=== PATIENT | female | born 1995 | race Caucasian/White ===

== ENCOUNTER 2019-02-27 18:53 | Observation (INO) | payer BC ==
[2019-02-27 20:23] LABS: BUN/Creatinine Ratio 10.1 (8-20); Calcium 9.2 mg/dL (8.6-10.3); EGFR African American 107.3 (>60); EGFR Non-African American 88.7 (>60); Potassium 3.7 mmol/L (3.5-5.0)
[2019-02-28] MEDS ORDERED: NS 0.9% 1000 ML** 2,000 ML IV ONE (01:33)
[2019-02-28] MEDS ORDERED: Ketorolac INJ* 30 MG/ML 1 ML VIAL IV PUSH ONE (01:33)
[2019-02-28 01:50] LABS: ABS Basophils 0.1 10^3/ul (0-0.2); ABS Eosinophils 0.1 10^3/ul (0-0.6); ABS Lymphocytes 2.9 10^3/ul (1.0-4.8); ABS Monocytes 0.5 10^3/ul (0-0.8); ABS Neutrophils 5.1 10^3/ul (1.5-7.7); Eosinophil % 1.4 %; Hematocrit 40 % (35-47); Hemoglobin 13.6 g/dL (12.0-16.0); Lymphocyte % 33.5 %; Mean Corpuscular HGB Conc 34 g/dL (31-36); Mean Corpuscular Hemoglobin 31 pg (27-31); Mean Corpuscular Volume 91 fL (80-97); Mean Platelet Volume 9.4 fL (7.4-10.4); Platelet Count 272 10^3/uL (150-450); Red Blood Count 4.41 10^6 /uL (3.70-4.87); Red Cell Distribution Width 14 % (10-15); White Blood Count 8.6 10^3/uL (3.5-10.8)
--- NOTE | 2019-02-28 02:04 | HP ---
History of Present Illness - History of Present Illness Reason for Visit: Swollen arms bilaterally. History of Present Illness: 23yoF with PMHx of asthma and allergies here due to bilateral arms welling and pain. Patient had recently worked out a lot for the last 3 days. Having really bad pain in the arms so decided to come to the ER. Noticed a decline in urination, no pain with urination and noticed the urine was a bit darker in color. Has some lack of appetite. Past Medical History Mild Asthma only on PRN inhaler Allergies to a lot of foods Past Surgical History None Family History Mom 68 alive and well no medical problem. Dad 65 alive and well no medical problem. Social History No smoking, Some alcohol on occasions and no drugs although tried marijuana. Allergies Allergy/AdvReac Type Severity Reaction Status Date / Time Penicillins Allergy Anaphylatic Verified 02/27/19 19:03 Shock Home Medications Medication Instructions Recorded Confirmed Type Albuterol HFA INHALER* [Ventolin 2 puff INH Q6H PRN 02/28/19 02/28/19 History HFA Inhaler*] [id number] Tablet 1 tab PO DAILY WITH MEAL 02/28/19 02/28/19 History Review of Systems - Measurements Intake and Output: Intake and Output Last 24 Hours 02/25/19 02/26/19 02/27/19 02/28/19 06:59 06:59 06:59 06:59 Weight 151 lb - Review of Systems Constitutional Symptoms: Negative: Fever Eyes: Negative: Change in Vision Pulmonary: Negative: Cough, Shortness of Breath Cardiology: Negative: Chest Pain, Shortness of Breath, Palpitations Gastroenterology: Negative: Abdominal Pain, Nausea, Vomiting Musculoskeletal: Positive: Other - Bialteral Arm pain. Neurology: Negative: Change in Vision, Change in Balancing, Change in Coordination, Change in Memory Psychiatry: Negative: Depression, Anxiety Allergic/Immunologic: Positive: Hx Environmental, Asthma Objective Active Medications: Sodium Chloride (Ns 0.9% 1000 Ml) 2,000 mls @ 1,000 mls/hr IV .PER RATE ONE Stop: 02/28/19 03:32 Last Admin: 02/28/19 01:47 Dose: 1,000 mls/hr Vital Signs - 8 hr 02/27/19 02/27/19 02/27/19 18:58 21:20 23:27 Temperature 98.9 F 98.6 F 99.8 F Pulse Rate 66 63 60 Respiratory 16 18 18 Rate Blood Pressure 109/81 140/79 126/74 (mmHg) O2 Sat by Pulse 100 99 99 Oximetry Oxygen Devices in Use Now: None Eyes: No Scleral Icterus, PERRLA Ears/Nose/Mouth/Throat: NL Teeth, Lips, Gums, Clear Oropharnyx, Mucous Membranes Moist Neck: NL Appearance and Movements; NL JVP Respiratory: Clear to Auscultation Cardiovascular: NL Sounds; No Murmurs; No JVD, RRR, No Edema Abdominal: NL Sounds; No Tenderness; No Distention Extremities: No Edema, - - Bilateral arm tenderness. Neurological: Alert and Oriented x 3, NL Sensation, NL Gait, NL Muscle Strength and Tone Nutrition: Taking PO's Result Diagrams: 02/27/19 19:53 02/27/19 19:53 Assess/Plan/Problems-Billing Assessment: 23yoF with asthma here due to rhabdomyalsis with elevated CPK. - Patient Problems (1) Rhabdomyolysis Current Visit: Yes Status: Acute Code(s): M62.82 - RHABDOMYOLYSIS SNOMED Code(s): 839567026 Comment: Secondary to excessive workout. Start IV hydration. UA still pending. Montior Creatinine, urine output and CPK.
[2019-02-28] MEDS ORDERED: Acetaminophen TAB* 325 MG PO PRN (02:13)
[2019-02-28 02:21] LABS: Albumin 4.1 g/dL (3.2-5.2); Indirect Bilirubin 0.5 mg/dL (0.3-1.0); Total Bilirubin 0.7 mg/dL (0.2-1.0)
[2019-02-28 02:26] LABS: Albumin/Globulin Ratio 1.4 (1-3); C Reactive Protein 15.79 mg/L (<8.01); Globulin 2.9 g/dL (2-4)
[2019-02-28 02:55] LABS: Myoglobin 2031.1 ng/mL (14.3-65.8)
[2019-02-28] MEDS: NS 0.9% 1000 ML** 1,000 ML IV SCH ×4 (04:00→19:30)
--- NOTE | 2019-02-28 05:24 | ED ---
Upper Extremity Pain - HPI Summary HPI Summary: Patient is a 23 y/o F presenting to ED with complaints of bilateral arm pain and swelling for the past few days. She reports that she recently began to lift more frequently. PMHx is denied. Patient went to [facility] for evaluation earlier today. UA was done and patient was noted to have protein in urine. Patient was advised to come to [facility] for bloodwork. No rash noted. On triage, pain is rated 4/10, nothing is noted to aggravate/alleviate Sx. Home medications and allergies are reviewed. - History of Current Complaint Chief Complaint: EDExtremityUpper Stated Complaint: SWOLLEN MUSCLES, SENT FROM [facility] PER PT Time Seen by Provider: 02/28/19 01:24 Hx Obtained From: Patient Onset/Duration: Started Days Ago, Still Present Timing: Constant, Lasting Days Severity Initially: Moderate Pain Location: Arm - arms bilaterally Aggravating Factor(s): Nothing Alleviating Factor(s): Nothing Associated Signs & Symptoms: Positive: Swelling, Other - no rash - Allergies/Home Medications Allergies/Adverse Reactions: Allergies Allergy/AdvReac Type Severity Reaction Status Date / Time Penicillins Allergy Anaphylatic Verified 02/27/19 19:03 Shock Home Medications: Home Medications Albuterol HFA INHALER* [Ventolin HFA Inhaler*] 2 puff INH Q6H PRN 02/28/19 [ History Confirmed 02/28/19] [id number] Tablet 1 tab PO DAILY WITH MEAL 02/28/19 [History Confirmed ] PMH/Surg Hx/FS Hx/Imm Hx Sensory History: Reports: Hx Contacts or Glasses Denies: Hx Hearing Aid Opthamlomology History: Reports: Hx Contacts or Glasses Psychiatric History: Denies: Hx Anxiety, Hx Depression - Immunization History Immunizations Up to Date: Yes Infectious Disease History: No Infectious Disease History: Denies: Traveled Outside the [place] in Last 30 Days - Family History Known Family History: Negative: Diabetes - Social History Alcohol Use: Occasionally Substance Use Type: Reports: None Smoking Status (MU): Never Smoked Tobacco Review of Systems Positive: Myalgia - arms , Edema - arms Negative: Rash All Other Systems Reviewed And Are Negative: Yes Physical Exam - Summary Physical Exam Summary: VITAL SIGNS: Reviewed. GENERAL: Patient is a well-developed and nourished female who is lying comfortable in the stretcher. Patient is not in any acute respiratory distress. HEAD AND FACE: No signs of trauma. No ecchymosis, hematomas or skull depressions. No sinus tenderness. EYES: PERRLA, EOMI x 2, No injected conjunctiva, no nystagmus. EARS: Hearing grossly intact. Ear canals and tympanic membranes are within normal limits. MOUTH: Oropharynx within normal limits. NECK: Supple, trachea is midline, no adenopathy, no JVD, no carotid bruit, no c- spine tenderness, neck with full ROM CHEST: Symmetric, no tenderness at palpation LUNGS: Clear to auscultation bilaterally. No wheezing or crackles. CVS: Regular rate and rhythm, S1 and S2 present, no murmurs or gallops appreciated. Good pulses throughout. ABDOMEN: Soft, non-tender. No signs of distention. No rebound no guarding, and no masses palpated. Bowel sounds are normal. EXTREMITIES: FROM in all major joints, no cyanosis or clubbing. There is tenderness over both arms and no significant swelling. NEURO: Alert and oriented x 3. No acute neurological deficits. Speech is normal and follows commands. SKIN: Dry and warm Triage Information Reviewed: Yes Vital Signs On Initial Exam: Initial Vitals Temp Pulse Resp BP Pulse Ox 98.9 F 66 16 109/81 100 02/27/19 18:58 02/27/19 18:58 02/27/19 18:58 02/27/19 18:58 02/27/19 18:58 Vital Signs Reviewed: Yes Diagnostics - Vital Signs Vital Signs Temp Pulse Resp BP Pulse Ox 02/28/19 02:10 74 124/77 100 02/28/19 02:01 62 97 02/28/19 01:42 76 100 02/28/19 01:40 78 124/70 99 02/27/19 23:27 99.8 F 60 18 126/74 99 02/27/19 21:20 98.6 F 63 18 140/79 99 02/27/19 18:58 98.9 F 66 16 109/81 100 - Laboratory Lab Results: Lab Results 02/27/19 02/27/19 Range/Units 19:53 19:53 WBC 8.6 (3.5-10.8) 10^3/uL RBC 4.41 (3.70-4.87) 10^6 /uL Hgb 13.6 (12.0-16.0) g/dL Hct 40 (35-47) % MCV 91 (80-97) fL MCH 31 (27-31) pg MCHC 34 (31-36) g/dL RDW 14 (10-15) % Plt Count 272 (150-450) 10^3/uL MPV 9.4 (7.4-10.4) fL Neut % (Auto) 58.8 % Lymph % (Auto) 33.5 % Hodgeman % (Auto) 5.4 % Eos % (Auto) 1.4 % Baso % (Auto) 0.9 % Absolute Neuts (auto) 5.1 (1.5-7.7) 10^3/ul Absolute Lymphs (auto) 2.9 (1.0-4.8) 10^3/ul Absolute Monos (auto) 0.5 (0-0.8) 10^3/ul Absolute Eos (auto) 0.1 (0-0.6) 10^3/ul Absolute Basos (auto) 0.1 (0-0.2) 10^3/ul Absolute Nucleated RBC 0.0 10^3/ul Nucleated RBC % 0.0 Sodium 136 (135-145) mmol/L Potassium 3.7 (3.5-5.0) mmol/L Chloride 104 (101-111) mmol/L Carbon Dioxide 24 (22-32) mmol/L Anion Gap 8 (2-11) mmol/L BUN 8 (6-24) mg/dL Creatinine 0.79 (0.51-0.95) mg/dL Est GFR ( Amer) 107.3 (>60) Est GFR (Non-Af Amer) 88.7 (>60) BUN/Creatinine Ratio 10.1 (8-20) Glucose 90 (70-100) mg/dL Calcium 9.2 (8.6-10.3) mg/dL Total Bilirubin 0.70 (0.2-1.0) mg/dL Direct Bilirubin 0.20 H (0.03-0.18) mg/dL Indirect Bilirubin 0.5 (0.3-1.0) mg/dL AST 727 H (13-39) U/L ALT 200 H (7-52) U/L Alkaline Phosphatase 48 (34-104) U/L Total Creatine Kinase 26023 H (10-223) U/L Myoglobin 2031.1 H (14.3-65.8) ng/mL C-Reactive Protein 15.79 H (<8.01) mg/L Total Protein 7.0 (6.4-8.9) g/dL Albumin 4.1 (3.2-5.2) g/dL Globulin 2.9 (2-4) g/dL Albumin/Globulin Ratio 1.4 (1-3) Result Diagrams: 02/27/19 19:53 02/27/19 19:53 Lab Statement: Any lab studies that have been ordered have been reviewed, and results considered in the medical decision making process. Course/Dx - Course Course Of Treatment: Patient is a 23 y/o F presenting to ED with complaints of bilateral arm pain and swelling for the past few days. She reports that she recently began to lift more frequently. PMHx is denied. Patient went to [facility] for evaluation earlier today. UA was done and patient was noted to have protein in urine. Patient was advised to come to [facility] for bloodwork. No rash noted. On physical exam, patient is noted to be tender over both arms, there is no significant swelling, good pulses throughout. Labs showed direct bilirubin 0.2, AST 727, ALT 200, total creatine kinase 14577, myoglobin 2031.1, CRP 15.79. During ED course, patient received fluids and toradol 15 mg IV. Patient s case was discussed with Dr. Hernandez, Dr. Hernandez accepts for admission. Patient agreeable with admission. - Diagnoses Provider Diagnoses: Rhabdomyolysis - Physician Notifications Discussed Care of Patient With: Jerrod Hernandez Time Discussed With Above Provider: 01:38 Instructed by Provider To: Other - Patients case was discussed with Dr. Hernandez, Dr. Hernandez accepts for admission. Discharge - Sign-Out/Discharge Documenting (check all that apply): Patient Departure - admit All imaging exams completed and their final reports reviewed: No Studies Patient Received Moderate/Deep Sedation with Procedure: No - Discharge Plan Condition: Fair Disposition: ADMITTED TO [facility] - Attestation Statements Document Initiated by Scribe: Yes Documenting Scribe: DAWNA ONOFRE Provider For Whom Scribe is Documenting (Include Credential): JUANA LANGE MD Scribe Attestation: IDAWNA, scribed for JUANA LANGE MD on 02/28/19 at 0541. Status of Scribe Document: Ready
[2019-02-28 08:41] LABS: BUN/Creatinine Ratio 10.4 (8-20); Calcium 7.6 mg/dL (8.6-10.3); EGFR African American 129.8 (>60); EGFR Non-African American 107.2 (>60); Potassium 4.1 mmol/L (3.5-5.0)
--- NOTE | 2019-02-28 10:55 | PN ---
Subjective Date of Service: 02/28/19 Interval History: Ms. Mahmood reports some mild pain and swelling in her arms. She notes that her urine had been dark with a minimal amount of output over the couple of days prior to admission. She has been doing frequent reps of arm weights at [employer]. She notes that now her urine is normal in color and she is urinating frequently. Objective Active Medications: Acetaminophen (Tylenol Tab*) 650 mg PO Q6H PRN Sodium Chloride (Ns 0.9% 1000 Ml) 1,000 mls @ 200 mls/hr IV PER RATE NEFTALI Vital Signs: Temp Pulse Resp BP Pulse Ox 98.5 F 78 18 109/53 98 02/28/19 07:15 02/28/19 07:15 02/28/19 07:15 02/28/19 07:15 02/28/19 07:15 Oxygen Devices in Use Now: None Appearance: Female sitting up in bed in NAD Eyes: No Scleral Icterus Ears/Nose/Mouth/Throat: Mucous Membranes Moist Neck: Trachea Midline Respiratory: Symmetrical Chest Expansion and Respiratory Effort, Clear to Auscultation Cardiovascular: NL Sounds; No Murmurs; No JVD, No Edema Abdominal: NL Sounds; No Tenderness; No Distention Skin: No Rash or Ulcers Neurological: Alert and Oriented x 3, NL Muscle Strength and Tone Nutrition: Taking PO's Result Diagrams: 02/27/19 19:53 02/28/19 07:48 Additional Lab and Data: . Assess/Plan/Problems-Billing Assessment: Ms. Mahmood is a 23yo F with asthma here due to rhabdomyalsis with elevated CPK after intense workout. - Patient Problems (1) Rhabdomyolysis Comment: - CK improving slowly but still ~ 24k - Secondary to excessive workout. - Continue IV hydration. - Creatinine remains normal. (2) Elevated LFTs Comment: - Secondary to rhabdomyolysis - Monitor (3) DVT prophylaxis Comment: - Low risk, early mobility. (4) Full code status Comment: Status and Disposition: Inpatient. Anticipate discharge to home when medically stable.
[2019-03-01] MEDS: NS 0.9% 1000 ML** 1,000 ML IV SCH ×5 (00:36→20:19)
[2019-03-01 06:33] LABS: Albumin 3.2 g/dL (3.2-5.2); Albumin/Globulin Ratio 1.3 (1-3); BUN/Creatinine Ratio 9.5 (8-20); Calcium 8.3 mg/dL (8.6-10.3); EGFR African American 139.3 (>60); EGFR Non-African American 115.1 (>60); Globulin 2.4 g/dL (2-4); Potassium 3.9 mmol/L (3.5-5.0); Total Bilirubin 0.5 mg/dL (0.2-1.0); Total Protein 5.6 g/dL (6.4-8.9)
[2019-03-01 08:41] LABS: Urine Appearance Clear; Urine Bacteria Absent (Absent); Urine Bilirubin Negative (Negative); Urine Blood 1+ (Negative); Urine Color Straw; Urine Glucose Negative (Negative); Urine Ketones Negative (Negative); Urine Nitrite Negative (Negative); Urine Protein Negative (Negative); Urine Red Blood Cell Trace(0-2/hpf) (Absent); Urine Specific Gravity 1.005 (1.010-1.030); Urine Squamous Epithelial Cell Present (Absent); Urine Urobilinogen Negative (Negative); Urine White Blood Cell 1+(6-10/hpf) (Absent)
[2019-03-01 08:54] LABS: Urine Benzodiazepine Screen None Detected (None Detect); Urine Opiates Screen None Detected (None Detect)
--- NOTE | 2019-03-01 12:11 | PN ---
Subjective Date of Service: 03/01/19 Interval History: Ms. Mahmood reports that she is feeling fine today. She has a little weakness in her arms but no pain. She is urinating copious amounts. Objective Active Medications: Acetaminophen (Tylenol Tab*) 650 mg PO Q6H PRN Sodium Chloride (Ns 0.9% 1000 Ml) 1,000 mls @ 200 mls/hr IV PER RATE NEFTALI Vital Signs: Temp Pulse Resp BP Pulse Ox 97.7 F 70 18 103/57 97 03/01/19 07:33 03/01/19 07:33 03/01/19 08:00 03/01/19 07:33 03/01/19 07:33 Oxygen Devices in Use Now: None Appearance: Female sitting up in bed in NAD Eyes: No Scleral Icterus Ears/Nose/Mouth/Throat: Mucous Membranes Moist Neck: Trachea Midline Respiratory: Symmetrical Chest Expansion and Respiratory Effort, Clear to Auscultation Cardiovascular: NL Sounds; No Murmurs; No JVD, No Edema Abdominal: NL Sounds; No Tenderness; No Distention Extremities: No Edema Skin: No Rash or Ulcers Neurological: Alert and Oriented x 3, NL Muscle Strength and Tone Nutrition: Taking PO's Result Diagrams: 02/27/19 19:53 03/01/19 05:30 Additional Lab and Data: . Assess/Plan/Problems-Billing Assessment: Ms. Mahmood is a 23yo F with asthma here due to rhabdomyolysis with elevated CPK after intense workout. - Patient Problems (1) Rhabdomyolysis Comment: - CK improving slowly but still ~ 19k - Secondary to excessive workout. - Continue IV hydration, receiving ~ 5L per day. - Creatinine remains normal. (2) Elevated LFTs Comment: - Secondary to rhabdomyolysis - Monitor (3) DVT prophylaxis Comment: - Low risk, early mobility. (4) Full code status Comment: Status and Disposition: Inpatient. Anticipate discharge to home when medically stable.
[2019-03-02] MEDS: NS 0.9% 1000 ML** 1,000 ML IV SCH ×2 (02:02→07:25)
[2019-03-02 07:29] LABS: BUN/Creatinine Ratio 10.4 (8-20); Calcium 8.1 mg/dL (8.6-10.3); EGFR African American 129.8 (>60); EGFR Non-African American 107.2 (>60); Potassium 3.9 mmol/L (3.5-5.0)
[2019-03-02 08:41] VITALS: BP 105/56
--- NOTE | 2019-03-03 00:28 | DS ---
CC: [facility] * DISCHARGE SUMMARY: DATE OF ADMISSION: 02/28/19 DATE OF DISCHARGE: 03/02/19 PRIMARY CARE PROVIDER: None. ATTENDING PHYSICIAN: Dr. Naomi Xiong * (dictated by Daisy Devine NP). PRIMARY DIAGNOSES: 1. Rhabdomyolysis 2. Transaminitis. SECONDARY DIAGNOSIS: None. HISTORY OF PRESENT ILLNESS AND HOSPITAL COURSE: Ms. Mahmood is a 23-year-old female with past medical history of asthma, who presented to the emergency room on 02/28/19 with complaints of bilateral swollen arms. Please see the history and physical by Dr. Hernandez for complete summary of the events leading up to this hospitalization. In short, the patient had recently been lifting weights in the last 3 days. She reports that she typically does cardio at the gym, but does not typically lift weights. She began having significant pain in her arms and so came into the emergency room. In the emergency room, she was noted to have a CK of 35,000 as well as an elevated AST and ALT. There was no evidence of acute kidney injury. She was admitted by the hospitalist service. The patient was given significant amount of IV fluids approximately 5 L per day. CK trended down, and as of today, the day of discharge, it is 8700. LFT's yesterday had also trended down with AST going from 727 to 441 and ALT going from 200 to 165. This is secondary to rhabdomyolysis. On exam today, the patient reports feeling well. She offers no complaints. She reports mild back pain, otherwise has no pain. She has been urinating well and ambulating without difficulty. On exam, she has no focal neurological deficits. Her heart has a regular rate and rhythm without murmurs, rubs, or gallops. Lungs are clear to auscultation without rhonchi, wheezes, or rales. There is no edema. Physical assessment is otherwise benign. Ms. Mahmood is stable for discharge today. Vital signs are as follows: Temperature 99.0, heart rate 66, respiratory rate 18, oxygen saturation 99 percent on room air, blood pressure 107/56. DISCHARGE MEDICATIONS: New medications: 1. Acetaminophen 650 mg p.o. q.6 hours p.r.n. pain. Continued medications: 1. Albuterol MDI 2 puffs q.6 hours p.r.n. wheezing. 2. Oral breath control 1 tab p.o. daily. DISCHARGE PLAN: Ms. Mahmood will be discharged home. ACTIVITY: Will be as tolerated, though I have advised the patient that she should avoid strenuous activity for the next 4 to 5 days, then can resume activity very gradually. DIET: Will be regular as tolerated. I have educated the patient that she should remain very hydrated over the next week. DISCHARGE INSTRUCTIONS: I have also ordered repeat labs for the patient to have drawn in 3 days. The patient does not have any primary care provider, though I have referred her to the [facility]. I have advised her that she should return to the emergency room or nearest hospital for any worsening of symptoms, shortness of breath, lightheadedness, dizziness, chest discomfort, high fever, chills, night sweats, loss of consciousness, or any other worrisome signs or symptoms. DISCHARGE CONDITION: Stable. DISCHARGE DISPOSITION: Home. This is a summarized report of a complex medical history and hospital stay. For further details, please see the entire medical record. TIME SPENT: Approximately 40 minutes were spent on this discharge. DAISY DEVINE NP [id number]/CPS #: [id number] DEMETRIUS
== END 2019-03-02 13:30 | disposition home or self-care (01) ==
LOC: ED 18:53 → MED 02-28 02:13 → INTOOBSV 02-28 02:13
PROVIDERS: ADMIT Internal Medicine; ATTEND Internal Medicine
DX: M62.82 Rhabdomyolysis (principal); R74.0 Nonspecific elevation of levels of transaminase and lactic acid dehydrogenase [LDH]; J45.909 Unspecified asthma, uncomplicated; R60.0 Localized edema; M54.9 Dorsalgia, unspecified; Z88.0 Allergy status to penicillin
CPT/HCPCS: 36415; 80048; 80053; 80076; 80307; 81003; 81015; 82550; 83874; 85025; 86140; 87086; 96361; 96374; 99284; J1885